=== PATIENT | male | born 1960 | race Caucasian/White ===

== ENCOUNTER → 2017-07-21 | Outpatient (CLI) | payer OTHER ==
[~2017-07-21] MED LIST: DICL1TAB63 PO; ECASA81 PO; GABA300C5 PO; MULT-65 PO; NEXI20CA PO; OXYC-360 PO; Z.0.NO CURRENT MEDS; ZANT150T2 PO
[2017-07-21 12:22] LABS: HEMATOCRIT 45.1 % (39.0-51.0); HEMOGLOBIN 15.2 GM/DL (13.0-17.0); MEAN CELL VOLUME 83.2 FL (80.0-100.0); MEAN CORPUSCULAR HEMOGLOBIN 28.1 PG (27.0-34.0); MEAN CORPUSCULAR HGB CONC 33.8 % (32.0-36.0); MEAN PLATELET VOLUME 8.1 FL (7.0-11.0); PLATELET COUNT 260 TH/MM3 (150-450); RED BLOOD COUNT 5.42 MIL/MM3 (4.50-5.90); RED CELL DISTRIBUTION WIDTH 12.9 % (11.6-17.2); WHITE BLOOD COUNT 8.7 TH/MM3 (4.0-11.0)
[2017-07-21 12:31] LABS: PROTHROMBIN TIME - PATIENT 9.8 SEC (9.8-11.6)
[2017-07-21 12:51] LABS: BICARBONATE 28.1 MEQ/L (21.0-32.0); CALCIUM 8.9 MG/DL (8.5-10.1); CREATININE 0.93 MG/DL (0.60-1.30)
[2017-07-21 13:01] LABS: BILIRUBIN, URINE NEG (NEG); BLOOD, URINE NEG (NEG); GLUCOSE,URINE NEG (NEG); KETONE, URINE NEG (NEG); MUCUS URINE MANY /lpf (OCC); NITRITE,URINE NEG (NEG); PH, URINE 5.5 (5.0-8.5); SQUAMOUS EPITHELIAL CELL URINE 1 /hpf (0-5); URINE COLOR YELLOW (YELLW/STRAW); URINE LEUKOCYTE ESTERASE NEG (NEG)
== END ==
LOC: CPRE 11:23
PROVIDERS: ATTEND Orthopaedic Surgery
DX: Z01.812 Encounter for preprocedural laboratory examination (principal); M17.12 Unilateral primary osteoarthritis, left knee; M79.609 Pain in unspecified limb
CPT/HCPCS: 36415; 80048; 81001; 85027; 85610; 85730

== ENCOUNTER 2017-08-14 05:17 | Inpatient (IN) | payer OTHER ==
[~2017-08-14] VITALS: Ht 172.7 cm; Wt 99.5 kg
[~2017-08-14 05:17] MED LIST changes: -OXYC-360 PO; -Z.0.NO CURRENT MEDS
[2017-08-14] MEDS ORDERED: METOPROLOL TARTRATE 25 MG TAB PO PRN (05:45)
[2017-08-14] MEDS ORDERED: CHLORHEXIDINE GLUCONATE 4% SOLN 120 ML BTL TOPICAL SCH (05:45)
[2017-08-14] MEDS ORDERED: ceFAZolin 2 GM PREMIX 50 ML IV SCH (05:45)
[2017-08-14] MEDS ORDERED: CHLORHEXIDINE GLUCONATE 2 % 1 PACK (2 CLOTHS) TOPICAL PRN (05:45)
[2017-08-14] MEDS ORDERED: SODIUM CHLORID 0.9% 500 ML IV PRN (05:45)
[2017-08-14] MEDS ORDERED: POVIDONE IODINE 5% (ANTISEPSIS KIT) 4 APPLICATIONS EACH NARE PRN (05:45)
[2017-08-14] MEDS ORDERED: LACTATED RINGER'S 1000 ML IV PRN (05:45)
[2017-08-14] MEDS ORDERED: FAT EMULSION 20% INJ 0 ML ONE (05:45)
[2017-08-14] MEDS ORDERED: LIDOCAINE HCL 1% PF 5 ML AMPULE ONE (06:08)
[2017-08-14] MEDS ORDERED: BUPIVACAINE HCL PF 0.5% 30 ML VIAL ONE (06:08)
[2017-08-14 06:11] VITALS: PULSE 84
[2017-08-14] MEDS ORDERED: GENTAMICIN SULFATE 80 MG/2 ML VIAL ONE (06:16)
[2017-08-14] MEDS ORDERED: PROPOFOL 500 MG/50 ML INJ 50 ML ONE (06:29)
[2017-08-14] MEDS ORDERED: ACETAMINOPHEN 1000 MG/100 ML 100 ML IV ONE (06:29)
[2017-08-14] MEDS ORDERED: FAMOTIDINE 20 MG/2 ML VIAL ONE (06:29)
--- NOTE | 2017-08-14 06:40 | HHI.FF ---
Face to Face Verification Diagnosis: (1) Status post total left knee replacement Physical Therapy Gait training Knee: Total knee, Protocol: Left, Gait training, Full weight bearing Left LE Weight Bearing: WB as tolerated Left LE Range of Motion: Active ROM (active, active-assisted, passive range of motion. Range of motion goal is 0 extension to 135 of flexion. Range of motion in the operating room was 0 extension to 145 of flexion.) Nursing Nursing: Dressing changes (to begin on postop day 7) Dressing Changes: Daily dressing change ( To begin on postop day 7.), Coverderm /Primapore Additional Instructions Steri-Strips are to be removed on postop day 14. I have seen patient Favian Ortega on 08/14/17. My clinical findings support the need for the requested home health care services because: Ltd mobility - disease progression Limited ability to care for self High risk of falls I certify that my clinical findings support that this patient is homebound because: Post-op weakness Unsteady gait/balance Unsafe to leave home unassisted Belia Castro MD (Charles) Aug 14, 2017 06:40
[2017-08-14] MEDS ORDERED: ECASA81 PO (06:41)
[2017-08-14] MEDS ORDERED: ZOLPIDEM TARTRATE 5 MG TAB PO PRN (06:45)
[2017-08-14] MEDS ORDERED: ONDANSETRON HCL 4 MG/2 ML VIAL IVP PRN (06:45)
[2017-08-14] MEDS ORDERED: TRANEXAMIC ACID INJ 0 MG in SODIUM CHLORIDE 0.9% INJ 100 ML IV SCH (06:45)
[2017-08-14] MEDS ORDERED: Post-op Orders (for Pharmacy) XX ONE (06:45)
[2017-08-14] MEDS ORDERED: MAGNESIUM HYDROXIDE SUSP 30 ML CUP PO PRN (06:45)
[2017-08-14] MEDS ORDERED: ACETAMINOPHEN/HYDROcodone 325 MG/7.5 MG TAB PO PRN (06:45)
[2017-08-14] MEDS ORDERED: MORPHINE SULFATE 4 MG/ML INJ IV PUSH PRN (06:45)
[2017-08-14] MEDS ORDERED: SODIUM CHLORIDE 0.9% IV SCH ×2 (07:00→10:00)
[2017-08-14] MEDS ORDERED: TRANEXAMIC ACID IV SCH ×2 (07:00→10:00)
[2017-08-14] MEDS ORDERED: EXPAREL PERI-ARTICULAR INJECTION (TOTAL VOL. 100 ML) P-ARTICULR SCH ×2 (07:15)
[2017-08-14] MEDS: MULTIVITAMIN TAB PO SCH (09:00)
[2017-08-14] MEDS ORDERED: PANTOPRAZOLE SOD 20 MG DELAYED RELEASE TAB PO SCH (09:00)
[2017-08-14] MEDS: ASPIRIN EC 81 MG TABEC PO SCH ×2 (09:00→20:16)
--- NOTE | 2017-08-14 09:02 | HHI.PR ---
Immediate Post Op Note Procedure Date: Aug 14, 2017 Pre Op Diagnosis: (1) Primary osteoarthritis of left knee Post Op Diagnosis: (1) Primary osteoarthritis of left knee Surgeon: Froylan Castro M.D. Recreational Sports Director(s): ROSI Camara Procedure: Left total knee arthroplasty with Vishnu Triathlon prosthesis (uncemented) Findings: There was severe osteoarthritis in the right knee with loss of articular cartilage to bone on bone, eburnation and osteophytes. Complications: None Specimen(s) removed: None Estimated blood loss: 100 mL Anesthesia: General, Regional Block (adductor canal block), Local (Exparel) Drains: Hemovac (to) IVF Tourniquet time (min at mmHg) None Patient to: PACU Patient Condition: Good Implant/Devices: SEE IMPLANT LOG (if applicable) Date/Time of Procedure: SEE SURGICAL CARE RECORD Belia Castro MD (Charles) Aug 14, 2017 09:02
--- NOTE | 2017-08-14 09:07 | PD.OP ---
Operative Report Date of Surgery: Aug 14, 2017 Preoperative Diagnosis: (1) Primary osteoarthritis of left knee Postoperative Diagnosis: (1) Primary osteoarthritis of left knee Procedure: Left total knee arthroplasty with Vishnu Triathlon prosthesis (uncemented) Anesthesia: Spinal with supplemental adductor canal block regional and local with Exparel Surgeon: Froylan Castro M.D. Manager Of Revenue(s): ROSI Camara Operation and Findings: Indications and Findings: This 57-year-old man has had progressive worsening of left knee pain subsequent to a left knee injury while working. He began with arthroscopic surgery and has had progressive worsening of his pain with progressive loss of articular cartilage on x-ray and progressive bowing of his knee. His pain has worsened when he had to discontinue nonsteroidal anti- inflammatory agents because of hepatic and renal issues. Physical findings have shown significant varus with laxity in the medial compartment and medial tenderness. X-rays have shown loss of articular cartilage to bone on bone in the medial compartment particularly when flexed with osteophytes and eburnation. Operative findings: There was significant arthritis particularly in the medial compartment but also patellofemoral to a lesser extent lateral. This went to bone on bone with eburnation and osteophytes medially. The prosthesis used was a [place] Triathlon prosthesis. The femur was a size 5 uncemented cruciate retaining. The tibial baseplate was a size 5 Tritanium with a 9 mm cruciate retaining X3 polyethylene spacer. The patella was a size 35 mm asymmetric Tritanium backed. The patient was brought to the clean-air operating suite after an adductor canal block regional had been performed. A spinal anesthetic was administered. The position was supine with a small bolster under the hip on the operative side. A pneumatic tourniquet was applied to the upper thigh. The lower extremity was then prepped with alcohol, Hibiclens and ChloraPrep and draped in the usual manner with the knee draped free. An appropriate timeout procedure was carried out. An incision was made from about 3 fingerbreadths above the superior medial pole of patella down the tibial tubercle on the medial side. The incision was deepened through the subcutaneous tissue to the retinacular structures which were exposed medially and laterally. A medial retinacular incision was then made from the superior middle pole of patella down the tibial tubercle and up into the quadriceps tendon splitting it longitudinally and the medial one third. The patella was reflected. The infrapatellar fat pad was debulked. The anterior cruciate ligament was excised. Medial and lateral meniscectomies were initiated. A fenestration was made in the distal femur for the intramedullary referencing guide. The distal femoral cutting guide and jig were then assembled for a 5, 8 mm cut. When this was in position, the cutting block was stabilized with pins. The jig was removed. The distal femoral cut was then completed with the oscillating saw. The sizing guide was then positioned in place along Whitesides line and the epicondylar axis and stabilized with pins. The femoral size was then determined with the sizing guide. The 4-in-1 cutting block was then positioned in place. Anterior and posterior cuts were made followed by posterior and anterior chamfer cuts taking care to prevent injury to ligamentous structures. Osteophytes were then trimmed from the distal femur. A bone plug was then placed into the fenestration of the distal femur. The proximal tibia was then exposed. The medial and lateral meniscectomies were completed. The extramedullary proximal tibial cutting guide was then positioned in place and stabilized for rotation. The depth of cut was then verified with a stylus referencing from the predetermined side. The cutting block was stabilized with pins. The jig was removed. The depth of cut was then verified and adjusted appropriately with the use of the spacer block. The proximal tibial cut was then made with the oscillating saw taking care to prevent injury to neurovascular and ligamentous structures. Proximal tibial bone was removed. Local anesthetic was administered with Exparel in the posterior capsule. The tibial baseplate trial was then positioned in place. After verifying the appropriate size, the base plate trial was positioned in place along with its spacer. The trial femoral component was then impacted into place. The alignment was checked. The trial tibial baseplate was then pinned in place on the tibia. Attention was directed to the patella. The patella drill guide was positioned in place for the appropriate sized patella. Patellar drilling was then carried out. The trial patella was positioned in place. The knee was taken through a range of motion which was easily 0 extension to 145. The patella trial was removed. The femoral drill holes were made. The femoral trial prosthesis was removed. The tibial spacer was removed. A bone plug was placed into the proximal tibia. The tibial punch was impacted through the proximal tibial punch guide. This was all removed followed by placement of the tibial drill guide. The tibial drill holes were then made. The guide was removed. The cut ends of bone were then cleaned with pulse lavage. The tibial baseplate was then impacted into place and seated appropriately. The spacer was inserted. The the femoral component was then impacted into place and seated appropriately. The patella component was then seated with the patellar vice and tightened appropriately. The knee was taken through a range of motion which was comparable to the previous range of motion with excellent stability in flexion and extension and appropriate patellofemoral tracking. The remainder of the Exparel was then injected throughout the knee as a local anesthetic. Drains were brought out the superior lateral aspect of the suprapatellar pouch. Wound closure then commenced using 0 Vicryl interrupted [id number] sutures for the capsular and fascial structures, 2-0 Vicryl interrupted simple sutures with buried knots for the subcutaneous tissues and 4- 0 Monocryl, tenuous subcuticular closure for the skin. The wound was then dressed with Steri-Strips followed by Optifoam silver impregnated dressing. Sterile soft roll with a cooling pad and Arthur bandage from the base of the toes to mid thigh were then applied. Patient was then transferred from the operating room to the recovery room in satisfactory condition having tolerated procedure well. Counts are correct. Specimens: None. Estimated blood loss: 100 mL Belia Castro MD (Charles) Aug 14, 2017 09:07
[2017-08-14] MEDS ORDERED: HYDR-3580 PO (09:08)
[2017-08-14] MEDS ORDERED: MIDAZOLAM HCL 2 MG/2 ML VIAL ONE (09:31)
[2017-08-14] MEDS: LACTATED RINGER'S 1000 ML INJ 1,000 ML IV SCH ×2 (10:00→19:04)
[2017-08-14] MEDS ORDERED: DO NOT ADM ANY ANTICOAGULANT DRUGS PRN (10:45)
--- NOTE | 2017-08-14 11:10 | RADRPT ---
EXAM DATE/TIME: 08/14/2017 10:01 [facility] COMPARISON: No previous studies available for comparison. INDICATIONS : Post-op left knee replacement. MEDICAL HISTORY : None. SURGICAL HISTORY : Total knee replacement, left. ENCOUNTER: Initial ACUITY: 1 day PAIN SCORE: 0/10 LOCATION: Left Knee FINDINGS: Postsurgical features of left knee arthroplasty. Arthroplasty components are in anatomic alignment. N o significant acute bony fracture. Immediate postsurgical soft tissue features. CONCLUSION: 1. Status post left knee arthroplasty in anatomic alignment without significant acute bony fracture. Zeferino Herrmann MD on August 14, 2017 at 11:08 Board Certified Radiologist. This report was verified electronically.
[2017-08-14] MEDS ORDERED: LIDOCAINE HCL 1% PF 5 ML SYRINGE OTHER ONE (12:00)
[2017-08-14] MEDS ORDERED: DEXAMETHASONE SOD PHOS 4 MG/ML VIAL IV ONE (12:00)
[2017-08-14] MEDS ORDERED: PHENYLEPH/NS 1000 MCG/10 ML SYR IV ONE (12:00)
[2017-08-14] MEDS ORDERED: LACTATED RINGER'S 1000 ML INJ 1,000 ML IV ONE (12:00)
[2017-08-14] MEDS ORDERED: ePHEDrine/NS 25 MG/5 ML SYRINGE IV ONE (12:00)
[2017-08-14] MEDS ORDERED: SODIUM CHLORIDE 0.9% 20 ML VIAL IV ONE (12:00)
[2017-08-14] MEDS ORDERED: EPINEPHrine HCL (1:1000) 1 MG/ML VIAL IV ONE (12:00)
[2017-08-14] MEDS ORDERED: ONDANSETRON HCL 4 MG/2 ML VIAL IV ONE (12:00)
[2017-08-14] MEDS ORDERED: PROPOFOL 200 MG/20 ML AMP IV ONE (12:00)
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
[2017-08-14 16:00] VITALS: BP 143/76; PULSE 97; RESP 16; TEMP 97.7; O2SAT 97
[2017-08-14 16:01] VITALS: O2SAT 96
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
[2017-08-14] MEDS ORDERED: RESP: ALBUTEROL 2.5 MG/IPRATROPIUM 0.5 MG NEB (PRN) NEB (17:00)
[2017-08-14] MEDS: KETOROLAC TROMETHAMINE 30 MG/ML (IVP) VIAL IVP SCH (18:14)
[2017-08-14] MEDS: ACETAMINOPHEN/HYDROcodone 325 MG/7.5 MG TAB PO PRN (18:15)
[2017-08-14] MEDS ORDERED: GABAPENTIN 300 MG CAP PO SCH (21:00)
[2017-08-14 21:30] VITALS: BP 102/64; PULSE 79; RESP 17; TEMP 96.9; O2SAT 97
[2017-08-15 00:40] VITALS: BP 121/68; PULSE 75; RESP 17; TEMP 97.2; O2SAT 97
[2017-08-15] MEDS: KETOROLAC TROMETHAMINE 30 MG/ML (IVP) VIAL IVP SCH ×3 (00:59→12:19)
[2017-08-15 03:40] VITALS: BP 126/70; PULSE 78; RESP 16; TEMP 97; O2SAT 98
[2017-08-15 05:44] LABS: BICARBONATE 26.3 MEQ/L (21.0-32.0); CALCIUM 8.7 MG/DL (8.5-10.1); CREATININE 0.76 MG/DL (0.60-1.30); MAGNESIUM 2.2 MG/DL (1.5-2.5)
--- NOTE | 2017-08-15 05:51 | PD.ORT.PN ---
Subjective Post Op Day #: 1 Subjective Remarks He is doing well. He has minimal complaints related to the knee. He indicates that he is not short of breath. He wonders what his chest x-ray yesterday. Range of Motion -5 degrees extension to 90 of flexion. Distance Walked 150 feet with PT. Objective Vitals Vital Signs Date Time Temp Pulse Resp B/P (MAP) Pulse Ox O2 Delivery O2 Flow Rate FiO2 08/15/17 03:40 97.0 78 16 126/70 (88) 98 08/15/17 00:40 97.2 75 17 121/68 (85) 97 08/14/17 21:30 96.9 79 17 102/64 (77) 97 08/14/17 19:30 18 08/14/17 19:30 18 08/14/17 16:01 96 08/14/17 16:00 97.7 97 16 143/76 (98) 97 08/14/17 15:55 18 08/14/17 14:15 72 20 129/64 (85) 95 Room Air 08/14/17 13:30 72 20 153/84 (107) 95 Nasal Cannula 08/14/17 12:30 68 20 114/79 (91) 95 Nasal Cannula 08/14/17 11:30 68 20 126/83 (97) 95 Nasal Cannula 08/14/17 10:30 68 20 121/74 (90) 98 Nasal Cannula 08/14/17 10:15 72 20 123/74 (90) 96 Nasal Cannula 08/14/17 10:00 69 20 113/68 (83) 95 Nasal Cannula 08/14/17 09:45 66 20 108/68 (81) 94 08/14/17 09:24 98.2 71 20 95/51 (66) 97 Nasal Cannula 2 08/14/17 06:11 84 08/14/17 05:57 98.9 85 20 139/91 (107) 98 I/O 08/14/17 08/14/17 08/14/17 08/15/17 08/15/17 08/15/17 07:00 15:00 23:00 07:00 15:00 23:00 Intake Total 1500 ml 100 ml 1060 ml Output Total 100 ml 130 ml 750 ml Balance 1400 ml -30 ml 310 ml Intake Oral 960 ml IV Total 100 ml 100 ml Other 1500 ml Output Urine Total 700 ml Drainage Total 130 ml 50 ml Estimated Blood Loss 100 ml # Bowel Movements 0 Imaging Last 24 hours Impressions Knee X-Ray 08/14/17 0634 Signed Impressions: Service Date/Time: Monday, August 14, 2017 10:01 - CONCLUSION: 1. Status post left knee arthroplasty in anatomic alignment without significant acute bony fracture. Zeferino Herrmann MD Objective Remarks He is resting comfortably, supine in bed, in the [facility]. The neurovascular status is intact. The dressing is dry and intact. Assessment & Plan Ortho Post Op Day #: 1 Problem List: (1) Status post total left knee replacement ICD Codes: Z96.652 - Presence of left artificial knee joint Plan: Continue postop care and PT. Assessment and Plan Condition: Good. Orthopedically stable. DVT prophylaxis: Sequentials, WILMA stockings, aspirin Discharge plans: Home with home health care. An appointment was scheduled through the office. Prescriptions: Moody 7.5/325 [] Belia Castro MD (Charles) Aug 15, 2017 05:51
[2017-08-15 06:50] LABS: HEMATOCRIT 41.6 % (39.0-51.0); HEMOGLOBIN 14.2 GM/DL (13.0-17.0); MEAN CELL VOLUME 82.5 FL (80.0-100.0); MEAN CORPUSCULAR HEMOGLOBIN 28.2 PG (27.0-34.0); MEAN CORPUSCULAR HGB CONC 34.1 % (32.0-36.0); MEAN PLATELET VOLUME 8.2 FL (7.0-11.0); PLATELET COUNT 167 TH/MM3 (150-450); RED BLOOD COUNT 5.04 MIL/MM3 (4.50-5.90); RED CELL DISTRIBUTION WIDTH 12.9 % (11.6-17.2); WHITE BLOOD COUNT 14.3 TH/MM3 (4.0-11.0)
--- NOTE | 2017-08-15 07:00 | HHI.DS ---
Discharge Summary Admission Date Aug 14, 2017 at 05:17 Discharge Date: Aug 15, 2017 Admitting Diagnosis Primary osteoarthritis, left knee. Diagnosis: (1) Status post total left knee replacement Diagnosis: Principal ICD Codes: Z96.652 - Presence of left artificial knee joint (2) Primary osteoarthritis of left knee Diagnosis: Principal ICD Codes: M17.12 - Unilateral primary osteoarthritis, left knee Status: Resolved Procedures Left total knee arthroplasty using Vishnu Triathlon prosthesis (uncemented) on 08/14/2017 Brief History This is a 57 year old male patient has had long-standing pain in his left knee with progressive varus deformity, progressive pain in the medial aspect which has been nonresponsive to conservative measures as detailed in the history and physical examination. Physical findings showed degenerative varum with crepitation and palpable osteophytes. X-rays showed severe osteoarthritis in the medial compartment down to bone on bone with osteophytes and eburnation. CBC/BMP: 08/15/17 0435 08/15/17 0435 Significant Findings Laboratory Tests Test 08/15/17 04:35 White Blood Count 14.3 TH/MM3 (4.0-11.0) Blood Urea Nitrogen 19 MG/DL (7-18) Random Glucose 112 MG/DL (74-106) PE at Discharge He is resting comfortably, supine in bed, in the [facility]. The neurovascular status is intact. The dressing is dry and intact. Hospital Course The patient was admitted as noted above. The above noted operative procedure was carried out that day. Preoperatively prophylactic antibiotics were administered Ancef according to protocol. These were continued postoperatively. The patient also received tranexamic acid to help with hemostasis according to protocol. In the postanesthesia care unit a continuous passive motion device was initiated. Also initiated were mechanical methods of DVT prophylaxis in the form of WILMA stockings and sequentials. Physical therapy was initiated on the day of surgery. He was able to walk 150 feet the day of surgery. On postoperative day #1 physical therapy continued. The use of the continuous passive motion device continued. DVT prophylaxis with aspirin 81 mg twice daily was initiated at this time. The patient continued physical therapy throughout the hospitalization. The distance walked and range of motion improved throughout the hospitalization. The patient was discharged on postoperative day 1 with the disposition being to home with home health care. An appointment for follow-up was made prior to admission. Pt Condition on Discharge: Good Discharge Disposition: Disch w/ Home Health Serv Discharge Instructions Diet Instructions: As Tolerated, No Restrictions Activities You Can Perform: Full Weight Bearing, Shower Only-No Bath Activities to Avoid: Lifting/Bending, Strenuous Activity, Bathing, Driving Follow up Referrals: Orthopedics with Belia Castro MD (Charles) New Medications: Aspirin (Aspirin DR) 81 Mg Tabdr 81 MG PO BID for Prevent Blood Clot for 30 Days, #60 TAB Hydrocodone/Acetaminophen (Hydrocodone-Acetamin 7.5-325) 7.5 Mg-325 Mg Tablet 1 TAB PO Q4H PRN for PAIN SCALE 1 TO 10, #50 TAB Continued Medications: Diclofenac-Misoprostol (Diclofenac-Misoprostol) 75-0.2 Mg Tab 1 TAB PO DAILY for Pain Management, #60 TAB 0 Refills Esomeprazole (Nexium) 20 Mg Capdr 20 MG PO EVERY OTHER DAY, CAP 0 Refills Gabapentin (Gabapentin) 300 Mg Cap 300 MG PO HS, #30 CAP 0 Refills Multiple Vitamin (Multi-Vitamin Daily) 1 Tab Tab 1 TAB PO DAILY for Nutritional Supplement, TAB 0 Refills Ranitidine (Zantac) 150 Mg Tab 150 MG PO EVERY OTHER DAY for Reduce Stomach Acid, #30 TAB 0 Refills Discontinued Medications: Aspirin (Aspirin DR) 81 Mg Tabdr 81 MG PO DAILY, TAB 0 Refills Belia Castro MD (Charles) Aug 15, 2017 07:00
[2017-08-15] MEDS: LACTATED RINGER'S 1000 ML INJ 1,000 ML IV SCH (07:34)
[2017-08-15 08:00] VITALS: BP 118/81; PULSE 66; RESP 17; TEMP 97.1; O2SAT 98
[2017-08-15] MEDS ORDERED: FAMOTIDINE 20 MG TAB PO SCH (09:00)
[2017-08-15] MEDS: ASPIRIN EC 81 MG TABEC PO SCH (09:40)
[2017-08-15] MEDS: MULTIVITAMIN TAB PO SCH (09:40)
[2017-08-15 09:43] VITALS: O2SAT 100
--- NOTE | 2017-08-15 11:08 | HHI.PR ---
Subjective Remarks in no acute distress. pain is controlled. no new complaints. Objective Vitals Vital Signs Date Time Temp Pulse Resp B/P (MAP) Pulse Ox O2 Delivery O2 Flow Rate FiO2 08/15/17 08:00 97.1 66 17 118/81 (93) 98 08/15/17 03:40 97.0 78 16 126/70 (88) 98 08/15/17 00:40 97.2 75 17 121/68 (85) 97 08/14/17 21:30 96.9 79 17 102/64 (77) 97 08/14/17 19:30 18 08/14/17 19:30 18 08/14/17 16:01 96 08/14/17 16:00 97.7 97 16 143/76 (98) 97 08/14/17 15:55 18 08/14/17 14:15 72 20 129/64 (85) 95 Room Air 08/14/17 13:30 72 20 153/84 (107) 95 Nasal Cannula 08/14/17 12:30 68 20 114/79 (91) 95 Nasal Cannula 08/14/17 11:30 68 20 126/83 (97) 95 Nasal Cannula I/O 08/14/17 08/14/17 08/14/17 08/15/17 08/15/17 08/15/17 07:00 15:00 23:00 07:00 15:00 23:00 Intake Total 1500 ml 100 ml 1740 ml Output Total 100 ml 130 ml 1750 ml 50 ml Balance 1400 ml -30 ml -10 ml -50 ml Intake Oral 1640 ml IV Total 100 ml 100 ml Other 1500 ml Output Urine Total 1700 ml Drainage Total 130 ml 50 ml 50 ml Estimated Blood Loss 100 ml # Bowel Movements 0 Result Diagram: 08/15/17 0435 08/15/17 0435 Imaging Last Impressions Knee X-Ray 08/14/17 0634 Signed Impressions: Service Date/Time: Monday, August 14, 2017 10:01 - CONCLUSION: 1. Status post left knee arthroplasty in anatomic alignment without significant acute bony fracture. Zeferino Herrmann MD Chest X-Ray 08/14/17 0000 Signed Impressions: Service Date/Time: Monday, August 14, 2017 15:59 - CONCLUSION: The lungs are clear. Amandeep Wilkins MD Objective Remarks GENERAL: This is a well-nourished, well-developed patient, in no apparent distress. CARDIOVASCULAR: Regular rate and regular rhythm without murmurs, gallops, or rubs. RESPIRATORY: Clear to auscultation. Breath sounds equal bilaterally. No wheezes , rales, or rhonchi. GASTROINTESTINAL: Abdomen soft, non-tender, nondistended. Normal, active bowel sounds MUSCULOSKELETAL: left knee/leg covered with clean dressing. NEURO: Alert & Oriented x4 to person, place, time, situation. Moves all ext x4 Medications and IVs Inpatient Medications Acetaminophen/ Hydrocodone Bitart (Cascade 7.5-325 Mg) 2 tab Q4H PRN PO PAIN SCALE 5 TO 10 Last administered on 08/14/17at 14:41; Start 08/14/17 at 06:45 Albuterol/ Ipratropium (Duoneb Neb) 1 ampule Q2HR NEB PRN NEB wheezing; Start 08/14/17 at 17:00 Aspirin (Ecotrin Ec) 81 mg BID PO Last administered on 08/15/17at 09:40; Start 08/14/17 at 09:00 Bupivacaine Liposome 20 ml/ Sodium Chloride 100 ml @ 200 mls/hr ONCE P- ARTICULR Last administered on 08/14/17at 07:54; Start 08/14/17 at 07:15; Stop at 07:14; Status DC Cefazolin Sodium 1000 mg/Sodium Chloride 100 ml @ 200 mls/hr Q6H IV Last administered on 08/15/17at 00:59; Start 08/14/17 at 14:00; Stop 08/15/17 at 02:29 ; Status DC Cefazolin Sodium/ Dextrose 50 ml @ 100 mls/hr [employer] IV Last administered on 08/14/17at 07:53; Start 08/14/17 at 05:45; Stop 08/17/17 at 05:44 Chlorhexidine Gluconate (Chlorhexidine 2% Cloth) 3 pack [employer] PRN TOPICAL SEE LABEL COMMENTS Last administered on 08/14/17at 05:30; Start 08/14/17 at 05:45 ; Stop 08/17/17 at 05:44 Chlorhexidine Gluconate (Hibiclens 4% Top Soln) 1 applic ONCE TOPICAL Last administered on 08/14/17at 06:00; Start 08/14/17 at 05:45; Stop 08/17/17 at 05:44 Docusate Sodium (Colace) 100 mg BID PO ; Start 08/15/17 at 21:00 Famotidine (Pepcid) 150 mg EVERY OTHER DAY PO ; Start 08/15/17 at 09:00 Gabapentin (Neurontin) 300 mg HS PO ; Start 08/14/17 at 21:00 Ketorolac Tromethamine (Toradol Inj) 15 mg Q6H IVP Last administered on at 05:46; Start 08/14/17 at 18:00; Stop 08/16/17 at 12:01 Lactated Ringer's 1,000 ml @ 80 mls/hr [id number] IV Last administered on at 10:00; Start 08/14/17 at 06:34 Magnesium Hydroxide (Milk Of Magnyumiko Liq) 30 ml DAILY PRN PO CONSTIPATION Last administered on 08/15/17at 09:40; Start 08/14/17 at 06:45 Metoprolol Tartrate (Lopressor) 25 mg [employer] PRN PO SEE LABEL COMMENTS; Start 08/14/17 at 05:45; Stop 08/17/17 at 05:44 Miscellaneous Information ALL NURSING DEPARTME... UNSCH PRN .XX SEE LABEL COMMENTS; Start 08/14/17 at 10:45; Stop 08/15/17 at 10:44; Status DC Miscellaneous Information (Post-op Orders (for Pharmacy)) STAT ONCE XX ; Start 08/14/17 at 06:45; Stop 08/14/17 at 12:37; Status DC Morphine Sulfate (Morphine Inj) 4 mg Q3H PRN IV PUSH BREAKTHROUGH PAIN; Start 08/14/17 at 06:45 Multivitamins (Theragran) 1 tab DAILY PO Last administered on 08/15/17at 09:40; Start 08/14/17 at 09:00 Ondansetron HCl (Zofran Inj) 4 mg Q6H PRN IVP NAUSEA OR VOMITING; Start at 06:45 Pantoprazole Sodium (Protonix) 20 mg EVERY OTHER DAY PO ; Start 08/14/17 at 09: 00 Povidone Iodine (Betadine 5% Antisepsis Kit) 1 applic [employer] PRN EACH NARE SEE LABEL COMMENTS Last administered on 08/14/17at 06:00; Start 08/14/17 at 05:45 ; Stop 08/17/17 at 05:44 Sodium Chloride 500 ml @ 30 mls/hr [id number] PRN IV SEE LABEL COMMENTS; Start at 05:45; Stop 08/17/17 at 05:44 Tranexamic Acid 995 mg/Sodium Chloride 109.95 ml @ 200 mls/ hr ONCE IV Last administered on 08/14/17at 10:41; Start 08/14/17 at 10:00; Stop 08/14/17 at 12:30 ; Status DC Zolpidem Tartrate (Ambien) 5 mg HS PRN PO SLEEP; Start 08/14/17 at 06:45 A/P Assessment and Plan Left knee replacement The patient had surgical repair on 08/14/17. He tolerated the procedure well. - Weightbearing, wound care and anticoagulation per orthopedic surgery. - Physical therapy. - Incentive spirometry. - Pain control with a bowel regimen. Abnormal stress test The patient said he had an abnormal stress test prior to the surgery so was referred for catheterization. Catheterization was negative for obstructive coronary disease. - Outpatient follow-up. - Continue aspirin once cleared by orthopedic surgery. PPx: Per surgery Discharge Planning dc planning per ortho. Narciso Mckeon MD Aug 15, 2017 11:08
[2017-08-15 11:56] VITALS: BP 119/79; PULSE 99; RESP 17; TEMP 98.7; O2SAT 98
[2017-08-15] MEDS: ACETAMINOPHEN/HYDROcodone 325 MG/7.5 MG TAB PO PRN (12:20)
[2017-08-15] MEDS ORDERED: DOCUSATE SODIUM 100 MG CAP PO SCH (21:00)
== END 2017-08-15 13:56 | disposition home health service (06) | DRG 470 ==
LOC: HSDI 05:17 → N06A 14:49 → N06B 08-15 13:37
PROVIDERS: ADMIT Orthopaedic Surgery; ATTEND Orthopaedic Surgery
PROC: 3E0T3BZ Introduction of Anesthetic Agent into Peripheral Nerves and Plexi, Percutaneous Approach (ICD-10-PCS; 2017-08-14)
PROC: 0SRD0JA Replacement of Left Knee Joint with Synthetic Substitute, Uncemented, Open Approach (ICD-10-PCS; principal; 2017-08-14 06:47)
DX: M17.12 Unilateral primary osteoarthritis, left knee (principal); R94.39 Abnormal result of other cardiovascular function study
CPT/HCPCS: 36415; 71045; 73560; 80048; 83735; 85027; 86850; 86900; 86901; 94150; C1776; J0131; J0171; J0690; J1100; J1580; J1885; J2250; J2370; J2405; J7120